=== PATIENT | male | born 1970 | race African-American/Black ===

== ENCOUNTER 2017-08-14 15:19 | Emergency (ER) | payer BC, MEDICAID ==
[~2017-08-14] VITALS: Ht 180.3 cm; Wt 93.6 kg
[2017-08-14 17:28] VITALS: BP 117/85
[2017-08-14 19:16] LABS: EOSINOPHILS % 3.3 % (0.0-5.0); HEMATOCRIT. 45.8 % (42.0-52.0); LYMPHOCYTES % 25.7 % (20.0-50.0); MEAN CORPUSCULAR HEMOGLOBIN 33.1 pg (28.0-32.0); MEAN PLATELET VOLUME 7.5 fl (7.4-10.4); MONOCYTES % 10.7 % (2.0-8.0); NEUTROPHILS % 59.3 % (40.0-76.0); PLATELET 222 x1000/uL (130-400); RED BLOOD CELL COUNT 4.83 mill/uL (4.7-6.1); RED CELL DISTRIBUTION WIDTH 13.3 % (11.6-14.6)
[2017-08-14 19:25] LABS: CHLORIDE 106 mEq/L (98-107)
== END 2017-08-14 22:20 | disposition left against medical advice (07) ==
LOC: ER 16:43
DX: R05 Cough (principal); R19.7 Diarrhea, unspecified
CPT/HCPCS: 36415; 80053; 85025; 99284

== ENCOUNTER 2018-06-25 02:15 | Emergency (ER) | payer BC, MEDICAID ==
[~2018-06-25] VITALS: Ht 180.3 cm; Wt 87.0 kg
[2018-06-25 08:44] LABS: HEMATOCRIT. 44.8 % (42.0-52.0); HEMOGLOBIN. 15.3 g/dL (14.0-18.0); MEAN CORPUSCULAR HEMOGLOBIN 32.8 pg (28.0-32.0); MEAN CORPUSCULAR VOLUME 96.1 fL (80.0-94.0); PLATELET 148 x1000/uL (130-400); RED BLOOD CELL COUNT 4.67 mill/uL (4.7-6.1); RED CELL DISTRIBUTION WIDTH 13.1 % (11.6-14.6)
[2018-06-25 09:16] LABS: PLATELET ESTIMATE NORMAL
[2018-06-25 09:42] LABS: CHLORIDE 106 mEq/L (98-107)
[2018-06-25 10:00] VITALS: BP 116/84
== END 2018-06-25 10:10 | disposition home or self-care (01) ==
LOC: ER 02:15
DX: R05 Cough (principal); R61 Generalized hyperhidrosis; B38.0 Acute pulmonary coccidioidomycosis; I10 Essential (primary) hypertension
CPT/HCPCS: 36415; 71045; 80048; 85025; 87804; 99284; Z7610